=== PATIENT | male | born 1960 | race Caucasian/White ===

== ENCOUNTER 2017-12-05 21:09 | Inpatient (IN) | payer MEDICAID ==
[~2017-12-05] VITALS: Ht 167.6 cm; Wt 83.0 kg
[2017-12-05 21:19] VITALS: BP 138/100
--- NOTE | 2017-12-05 21:23 | NUR ---
PT SENT TO LOBBY, EVEN STEADY GAIT.
--- NOTE | 2017-12-05 22:14 | NUR ---
PT AMBULATED TO BED 11
--- NOTE | 2017-12-05 22:31 | NUR ---
PT PRESENTS TO ED WITH C/O RIGHT SIDED WEAKNESS AND DIZZINESS X 2 DAYS. PT IS ALERT AND ORIENTED TO PERSON, PLACE, TIME, AND EVENT. PT GAIT IS EVEN AND STEADY. PT HAND STRENGTH IS EQUAL AND STRONG. PT DENIES AND N/V. PT PUPILS ARE 3MM AND EQUAL AND REACTIVE TO LIGHT. NO NEURO DEFECITS NOTED. PT PLACED ON MONITORS AND IN BED WITH BED RAILS UP AND PENDING MD LAUREN.
[2017-12-06] VITALS (8 sets, daily range): BP systolic 137–156; BP diastolic 77–87
[2017-12-06] MEDS ORDERED: NACL 0.9% 1,000 ML IV ONE (00:10)
[2017-12-06] MEDS ORDERED: ASPIRIN 81 MG TAB.CHEW PO ONE (00:10)
--- NOTE | 2017-12-06 00:20 | NUR ---
DR PANTOJA AT BEDSIDE TO EXPLAIN CT RESULTS TO PATIENT. PIV STARTED, PT TOLERATED WELL. ANSWERING QUESTIONS APPROPRIATELY.
[2017-12-06 00:28] LABS: BASOPHILS % (AUTO) 0.5 % (0.0-2.0); EOSINOPHILS # (AUTO) 0.1 K/uL (0-0.4); EOSINOPHILS % (AUTO) 1.5 % (0.0-4.0); HEMATOCRIT 43.6 % (36-52); HEMOGLOBIN 14.4 g/dL (12.0-18.0); LYMPHOCYTES # (AUTO) 2.3 K/uL (2.0-11.5); LYMPHOCYTES % (AUTO) 26.9 % (20.5-51.1); MEAN CORPUSCULAR HEMOGLOBIN 28 pg (27-31); MEAN CORPUSCULAR HGB CONC 33 g/dL (33-37); MEAN CORPUSCULAR VOLUME 84.2 fL (80-94); MONOCYTES # (AUTO) 0.7 K/uL (0.8-1.0); MONOCYTES % (AUTO) 7.7 % (1.7-9.3); NEUTROPHILS # (AUTO) 5.4 K/uL (1.8-7.7); NEUTROPHILS % (AUTO) 63.4 % (42.2-75.2); PLATELET COUNT (AUTO) 309 K/uL (140-450); RED BLOOD CELL COUNT(AUTO) 5.18 MIL/uL (4.20-6.10); RED CELL DISTRIBUTION WIDTH 15.4 % (11.6-13.7); WHITE BLOOD COUNT (AUTO) 8.5 K/uL (4.8-10.8)
--- NOTE | 2017-12-06 00:33 | NUR ---
PT RESTING AT THIS TIME. NO COMPLAINTS OR QUESTIONS. WILL CONTINUE TO MONITOR.
[2017-12-06] MEDS ORDERED: AMLO5TAB PO (00:36)
[2017-12-06 00:39] LABS: ANION GAP 8.3 (8-16); POTASSIUM 3.3 mmol/L (3.5-5.1)
[2017-12-06 00:43] LABS: PROTHROMBIN TIME 9.5 secs (10.8-13.4)
[2017-12-06 00:44] LABS: ALBUMIN 3.6 g/dL (3.4-5.0); TOTAL BILIRUBIN 0.3 mg/dL (0.0-1.0)
[2017-12-06] MEDS ORDERED: ENOXAPARIN 100 MG/ML SYR SUBQ ONE (01:10)
[2017-12-06] MEDS ORDERED: HYDROcodone/APAP 5/325 MG 1 TAB TAB PO PRN (01:40)
[2017-12-06] MEDS ORDERED: DOCUSATE SODIUM 100 MG GELCAP PO PRN (01:40)
[2017-12-06] MEDS ORDERED: MORPHINE SULFATE 2 MG/ML SYR IVP PRN (01:40)
[2017-12-06] MEDS ORDERED: ONDANSETRON 4 MG/2 ML VIAL IM/IVP PRN (01:40)
[2017-12-06] MEDS ORDERED: ACETAMINOPHEN 325 MG TAB PO PRN (01:40)
[2017-12-06] MEDS ORDERED: ZOLPIDEM 5 MG TAB PO PRN (01:40)
[2017-12-06] MEDS ORDERED: LORazepam 2 MG/ML VIAL IM/IVP PRN (01:40)
[2017-12-06 02:09] LABS: APPEARANCE,URINE SL CLOUDY (CLEAR); BILIRUBIN,URINE NEGATIVE (NEGATIVE); BLOOD, URINE NEGATIVE (NEGATIVE); COLOR,URINE YELLOW (YELLOW); LEUKOCYTE ESTERASE ,URINE NEGATIVE (NEGATIVE); NITRITE, URINE NEGATIVE (NEGATIVE); UGLUCOSE NEGATIVE (NEGATIVE)
--- NOTE | 2017-12-06 02:10 | NUR ---
RECEIVED REPORT FROM DAY SHIFT RN, FOR CONTINUITY OF CARE. PT IS A/OX4 WITH CLEAR SPEECH, ON ROOM AIR. PT IS ABLE TO MAKE NEEDS KNOWN, ABLE TO FOLLOW COMMANDS. PT BREATHS EQUAL AND UNLABORED. PUPILS EQUAL AND REACTIVE TO LIGHT, STRENGTH EQUAL TO ALL EXTREMITIES. BOWEL SOUNDS PRESENT. PT SKIN IS INTACT. PT AMBULATES WITH STEADY GAIT, BUT IS A FALL RISK FOR RIGHT SIDED WEAKNESS. PT HAS A 18G IV TO RIGHT HAND AND A 18G IV TO LEFT AC, (LEFT IV) INFUSING NS AT 100ML/HR, BOTH ASYMPTOMATIC AND INTACT. DISCUSSED PLAN OF CARE WITH PT, PT VERBALIZED UNDERSTANDING. VITAL SIGNS WITHIN NORMAL LIMITS. PT STABLE, NO SIGNS OF DISTRESS NOTED AT THIS TIME. BED IN LOWEST POSITION, BED ALARM ON. CALL LIGHT WITHIN REACH, WILL CONTINUE TO MONITOR.
--- NOTE | 2017-12-06 02:10 | NUR ---
Patient will be admitted to care of DR WRIGHT. Admited to TELE. Will go to room 123-B. Belongings list completed. Report to YUSUF HORTON.
--- NOTE | 2017-12-06 02:10 | NUR ---
Pt transferred to Tele 123B viaBED .
[2017-12-06] MEDS ORDERED: amLODIPine 5 MG TAB PO ONE (02:15)
[2017-12-06] MEDS ORDERED: POTASSIUM CHLORIDE 10 MEQ TABER PO SCH (02:15)
[2017-12-06 02:19] LABS: BARBITURATE, URINE NEG. ng/ml (NEG <=200); BENZODIAZEPINE, URINE NEG. ng/mL (NEG <=200); CANNABINOID, URINE NEG. ng/mL (NEG <=50); COCAINE, URINE NEG. ng/mL (NEG <=300); OPIATE, URINE NEG. ng/mL (NEG <=2000); PHENCYCLIDINE SCREEN,URINE NEG. ng/mL (NEG <=25)
[2017-12-06 02:27] LABS: AMYLASE 30 U/L (25-115); HDL CHOLESTEROL 43 mg/dL (40-60); LDL (CALC) 104 mg/dL (60-100); LIPASE 185 U/L (73-393); MAGNESIUM 2.3 mg/dL (1.8-2.4); THYROID STIMULATING HORMONE 1.23 uIU/mL (0.34-3.74); TRIGLYCERIDES 117 mg/dL (30-150)
[2017-12-06] MEDS: ATORVASTATIN 80 MG TAB PO SCH ×2 (02:58→17:14)
[2017-12-06] MEDS ORDERED: amLODIPine 5 MG TAB PO SCH ×2 (03:00→10:05)
[2017-12-06] MEDS: DEXT 5% / NACL 0.45% 1,000 ML IV SCH ×2 (03:00→11:09)
[2017-12-06] MEDS ORDERED: ATORVASTATIN 80 MG TAB PO SCH (03:00)
--- NOTE | 2017-12-06 04:00 | NUR ---
ORTHOSTATIC VITAL SIGNS DONE. VITAL SIGNS WITHIN NORMAL LIMITS. PT STABLE, NO SIGNS OF DISTRESS NOTED AT THIS TIME. BED IN LOWEST POSITION, BED ALARM ON.
[2017-12-06 04:02] LABS: LACTATE DEHYDROGENASE 169 U/L (85-227)
--- NOTE | 2017-12-06 06:40 | NUR ---
PT STABLE, NO SIGNS OF DISTRESS NOTED AT THIS TIME. BED IN LOWEST POSITION, BED ALARM ON.
[2017-12-06 06:46] LABS: BASOPHILS # (AUTO) 0.1 K/uL (0.00-0.22); BASOPHILS % (AUTO) 0.9 % (0.0-2.0); EOSINOPHILS # (AUTO) 0.2 K/uL (0-0.4); EOSINOPHILS % (AUTO) 1.9 % (0.0-4.0); HEMATOCRIT 41.8 % (36-52); HEMOGLOBIN 13.7 g/dL (12.0-18.0); LYMPHOCYTES # (AUTO) 2.1 K/uL (2.0-11.5); LYMPHOCYTES % (AUTO) 24.6 % (20.5-51.1); MEAN CORPUSCULAR HEMOGLOBIN 28 pg (27-31); MEAN CORPUSCULAR HGB CONC 33 g/dL (33-37); MEAN CORPUSCULAR VOLUME 84.3 fL (80-94); MONOCYTES # (AUTO) 0.7 K/uL (0.8-1.0); NEUTROPHILS # (AUTO) 5.4 K/uL (1.8-7.7); NEUTROPHILS % (AUTO) 64.6 % (42.2-75.2); PLATELET COUNT (AUTO) 287 K/uL (140-450); RED BLOOD CELL COUNT(AUTO) 4.96 MIL/uL (4.20-6.10); RED CELL DISTRIBUTION WIDTH 15.3 % (11.6-13.7); WHITE BLOOD COUNT (AUTO) 8.4 K/uL (4.8-10.8)
[2017-12-06 07:01] LABS: ANION GAP 6.6 (8-16); CARBON DIOXIDE 29.6 mmol/L (21-32); POTASSIUM 3.2 mmol/L (3.5-5.1)
[2017-12-06 07:07] LABS: MAGNESIUM 2.2 mg/dL (1.8-2.4)
--- NOTE | 2017-12-06 07:22 | NUR ---
RECEIVED REPORT AT BEDSIDE FROM CLAIMS ACCOUNT SPECIALIST NURSE. SKIN INTACT. NO S/S OF RESPIRATORY DISTRESS, RESPIRATIONS EVEN AND UNLABORED. NO COMPLAINTS OF PAIN OR DISCOMFORT. LUNGS CTA. HOB AT 30 DEGREES. HEART RHYTHM IS REGULAR. IV SITE PATENT AND ASYMPTOMATIC, RUNNING IVF PER MD ORDERS. PT IS AMBULATORY. ON SEIZURE PRECAUTIONS. BED IN LOWEST POSITION, BED BREAKS ON, BOTH SIDE RAILS UP. BEDSIDE TABLE AND CALL LIGHT ARE WITHIN REACH. WILL CONTINUE TO MONITOR. Addendum: 12/06/17 at 1107 by Nena Wilson Meng, RN HX CVA WITH RIGHT SIDED WEAKNESS.
--- NOTE | 2017-12-06 07:27 | NUR ---
ENDORSED PT TO DAY SHIFT RN FOR CONTINUITY OF CARE. PT IN STABLE CONDITION.
--- NOTE | 2017-12-06 08:47 | NUR ---
NOTIFIED DR. CHAVIS THAT POTASSIUM IS LOW.
--- NOTE | 2017-12-06 08:57 | NUR ---
PATIENT HAS BEEN SCREENED AND CATEGORIZED MODERATE NUTRITION RISK. PATIENT WILL BE SEEN WITHIN 3-5 DAYS OF ADMISSION. 12/08/17 12/10/[address]
--- NOTE | 2017-12-06 09:52 | NUR ---
HELPED PT DIAL SISTER'S NUMBER. SISTER WILL BE HERE LATER TODAY TO GIVE PATIENT HIS GLASSES.
[2017-12-06] MEDS: POTASSIUM CHLORIDE 10 MEQ TABER PO SCH ×2 (12:26→21:27)
--- NOTE | 2017-12-06 12:28 | NUR ---
SCHEDULED K DUR ADMINISTERED TO PT. DENIES PAIN AND DISCOMFORT. STATES THAT HE "FEELS WELL."
--- NOTE | 2017-12-06 13:49 | NUR ---
HELPED PT TO THE BATHROOM. GAIT EVEN AND STEADY, WITHOUT ASSIST. ALL SAFETY PRECAUTIONS IN PLACE. PT URINATED IN BATHROOM AND WENT BACK TO BED. WILL CONTINUE TO MONITOR.
[2017-12-06] MEDS ORDERED: POTASSIUM CHLORIDE 40 MEQ, LIDOCAINE MPF 1% - 5 mL VIAL 25 MG in NACL 0.9% 250 ML IV ONE (14:45)
--- NOTE | 2017-12-06 16:10 | NUR ---
PATIENT RESTING IN BED, WATCHING TV. DENIES PAIN AND DISCOMFORT. WILL CONTINUE TO MONITOR.
[2017-12-06] MEDS ORDERED: INFLUENZA VIRUS VACCINE QUAD 0.5 ML SYR IMVAC SCH (17:00)
--- NOTE | 2017-12-06 17:00 | NUR ---
DOCTOR NOTIFIED THAT PATIENT WOULD LIKE TO RECEIVE THE FLU VACCINE. DR. DALY TO PUT IN ORDER.
--- NOTE | 2017-12-06 17:22 | NUR ---
FLU VACCINE ADMINISTERED. PATIENT TEACHING GIVEN. PT VERBALIZED COMPLETE UNDERSTANDING.
--- NOTE | 2017-12-06 19:30 | NUR ---
ENDORSED POC TO GRILL CHEF RN AT BEDSIDE. PT IN STABLE CONDITION.
--- NOTE | 2017-12-06 19:33 | NUR ---
RECEIVED PT FROM DARIELA RN PT AAOX4 RESTING ON BD ON TELEMETRY SR, HL ON LEFT AC AND RT HAND PATENT NOT DISTRESS NOTED DENIES ANY SIDE WEAKNESS INITIAL ASSESSMENT DONE
--- NOTE | 2017-12-06 22:00 | NUR ---
PT SLEEPING WELL NOT SIGNS OF DISTRESS NOTED ON TELEMTRY SR
[2017-12-06] MEDS ORDERED: cloNIDine 0.1 MG TAB PO PRN (22:20)
[2017-12-07] VITALS: BP 152/75
--- NOTE | 2017-12-07 01:00 | NUR ---
PT RESTING ON BEDNOT DISTRESS NOTED VOIDING WELL ON TELEMETRY SR DENIES ANY WEAKNESS
[2017-12-07 04:00] VITALS: BP 140/83
--- NOTE | 2017-12-07 05:00 | NUR ---
SPONGE BATH GIVEN LINEN CHANGED ON TELEMETRY SR DENIES ANY PAIN OR DISCOMFORT
[2017-12-07 06:50] LABS: BASOPHILS % (AUTO) 0.6 % (0.0-2.0); EOSINOPHILS # (AUTO) 0.2 K/uL (0-0.4); EOSINOPHILS % (AUTO) 2.6 % (0.0-4.0); HEMATOCRIT 43.6 % (36-52); HEMOGLOBIN 14.4 g/dL (12.0-18.0); LYMPHOCYTES # (AUTO) 2.1 K/uL (2.0-11.5); LYMPHOCYTES % (AUTO) 25.6 % (20.5-51.1); MEAN CORPUSCULAR HEMOGLOBIN 28 pg (27-31); MEAN CORPUSCULAR HGB CONC 33 g/dL (33-37); MEAN CORPUSCULAR VOLUME 83.9 fL (80-94); MONOCYTES # (AUTO) 0.6 K/uL (0.8-1.0); MONOCYTES % (AUTO) 7.3 % (1.7-9.3); NEUTROPHILS # (AUTO) 5.2 K/uL (1.8-7.7); NEUTROPHILS % (AUTO) 63.9 % (42.2-75.2); PLATELET COUNT (AUTO) 286 K/uL (140-450); RED CELL DISTRIBUTION WIDTH 14.9 % (11.6-13.7); WHITE BLOOD COUNT (AUTO) 8.1 K/uL (4.8-10.8)
[2017-12-07 06:55] LABS: CARBON DIOXIDE 26.8 mmol/L (21-32); CREATININE 0.9 mg/dL (0.7-1.3); POTASSIUM 3.8 mmol/L (3.5-5.1)
[2017-12-07 07:02] LABS: MAGNESIUM 2.1 mg/dL (1.8-2.4); PHOSPHORUS 3.3 mg/dL (2.5-4.9)
--- NOTE | 2017-12-07 07:10 | NUR ---
PT REMAIN STABLE WILL BE ENDORSED TODAY SHIFT NURSE FOR CONTINUITY OF CARE
--- NOTE | 2017-12-07 07:20 | NUR ---
RECEIVED REPORT FROM NUCLEAR WEAPONS SPECIALIST YUSUF EL AT BEDSIDE. PT IN STABLE CONDITION. DENIES DIZZINESS, PAIN, DISCOMFORT, AND RIGHT SIDED WEAKNESS. STRENGTH IN BILATERAL HANDS EQUAL. RIGHT LEG SLIGHTLY WEAK AGAINST RESISTANCE. GAIT EVEN AND STEADY, WITHOUT ASSIST. IV SITE PATENT AND ASYMPTOMATIC, ON SL. SKIN INTACT. TATTOOS OVER BODY. DISCUSSED PLAN OF CARE WITH PATIENT. PT VERBALIZED COMPLETE UNDERSTANDING. ALL SAFETY PRECAUTIONS IN PLACE, WILL CONTINUE TO MONITOR.
[2017-12-07 08:00] VITALS: BP 144/92
[2017-12-07] MEDS: amLODIPine 5 MG TAB PO SCH (08:10)
--- NOTE | 2017-12-07 09:50 | NUR ---
OBTAINED INFORMATION FROM PATIENT FOR MRI CHECKLIST.
--- NOTE | 2017-12-07 10:15 | NUR ---
REHANA GUZMAN INFORMED THAT PATIENT REPORTS BULLET FRAGMENTS IN HEAD AND LEFT ARM.
--- NOTE | 2017-12-07 10:21 | NUR ---
DR. CHAVIS IN ROOM TO SPEAK WITH PT. MRI HEAD WILL BE CANCELLED.
[2017-12-07 12:00] VITALS: BP_SYST 148; BP_SYST 149; BP_DIAS 86; BP_DIAS 90
--- NOTE | 2017-12-07 12:10 | NUR ---
PATIENT HAS SIGNED CONSENT FOR CONTRAST FOR CT HEAD. PT HAS ATE LUNCH ALREADY. WILL REMOVE ALL FOOD AND DRINK FROM BEDSIDE. Addendum: 12/07/17 at 1407 by Nena Wilson Meng, RN CONSENT FILED IN PT CHART.
--- NOTE | 2017-12-07 13:30 | NUR ---
RADIOLOGY AWARE THAT PT ATE LUNCH. THEY WILL TAKE PATIENT AROUND [address] HEAD WITH CONTRAST.
--- NOTE | 2017-12-07 15:57 | NUR ---
PT TAKEN BY [facility] VIA WHEELCHAIR FOR CT HEAD WITH CONTRAST. VITALS STABLE. LEFT AC 18G IV FLUSHING WELL.
[2017-12-07 16:00] VITALS: BP 148/90
--- NOTE | 2017-12-07 16:15 | NUR ---
PT BACK FROM CT. SPO2 98%, HR 85, BP 127/85. PT CONNECTED BACK TO TELE. WILL CONTINUE TO MONITOR.
--- NOTE | 2017-12-07 17:30 | NUR ---
DR. DALY NOTIFIED THAT PT HAS URGE TO SMOKE. DOCTOR TO PUT IN ORDER FOR NICOTINE PATCH.
[2017-12-07] MEDS: DEXT 5% / NACL 0.45% 1,000 ML IV SCH (17:40)
--- NOTE | 2017-12-07 17:42 | NUR ---
D5-1/2NS NOT ADMINISTERED PER PARAMETERS. PT IS NOT NPO. HAS BEEN EATING ALL MEALS. NO S/S OF HYPOGLYCEMIA.
[2017-12-07] MEDS: ATORVASTATIN 80 MG TAB PO SCH (17:43)
--- NOTE | 2017-12-07 19:24 | NUR ---
REPORT GIVEN TO LEGUILLON DEBEADER RN AT BEDSIDE FOR CONTINUITY OF CARE. PT IN STABLE CONDITION.
--- NOTE | 2017-12-07 19:25 | NUR ---
RECEIVED PATIENT AWAKE SITTING ON THE SIDE OF THE BED. PATIENT [id number], AMBULATORY. DISCUSSED PLAN OF CARE. FALL PRECAUTION APPLIED. CALL LIGHT WITHIN REACH.
[2017-12-07 20:00] VITALS: BP 154/86
--- NOTE | 2017-12-07 21:05 | NUR ---
SEE PATIENT ASLEEP ON BED IN COMFORTABLE POSITION . BED IN LOW LOCKED POSITION. CALL LIGHT WITHIN REACH. NO S/S OF DISTRESS NOTED. WILL CONTINUE TO MONITOR.
[2017-12-08] VITALS: BP 156/87
--- NOTE | 2017-12-08 00:05 | NUR ---
SEEN PATIENT ASLEEP BUT EASILY AROUSABLE. V/S TAKEN AND RECORDED. ALL NEEDS ATTENDED. NO S/S OF DISTRESS NOTED AT THIS TIME. WILL CONTINUE TO MONITOR.
--- NOTE | 2017-12-08 02:10 | NUR ---
SEEN PATIENT ASLEEP COMFORTABLE ON BED. CALL LIGHT WITHIN REACH. WILL CONTINUE TO MONITOR.
[2017-12-08 04:00] VITALS: BP 152/86
--- NOTE | 2017-12-08 04:05 | NUR ---
SEEN PATIENT ASLEEP ON BED. V/S TAKEN AND RECORDED. BED IN LOW POSITION.
--- NOTE | 2017-12-08 07:30 | NUR ---
GAVE REPORT TO AM SHIFT NURSE AT BEDSIDE FOR CONTINUITY OF CARE. PATIENT IN STABLE CONDITION.
--- NOTE | 2017-12-08 07:32 | NUR ---
RECEIVED REPORT FROM NURSE AT BEDSIDE. PT LYING ON HIS BED. PT AOX4, ABLE TO COMMUNICATE EASILY. PT HAS IV ACCESS ON LFT FA, 22 G, SALINE LOCK. NO IVF INFUSING. SKI IS INTACT. PT STATES TO GO HOME TODAY. INFORMED HIM THAT MD WILL SEE PT AND THEN IF STABLE , WILL PUT ORDER FOR DISCHARGE. UPDATED BOARD AND INTRODUCED SELF. DENIES ANY PAIN. NO SIGN OF DISTRESS NOTED. PLACED CALL LIGHT WITHIN PT REACH. INFORMED HIM TO USE CALL LIGHT FOR ANY HELP. VERBALISED UNDERSTANDING. WILL CONTINUE TO MONITOR PT.
[2017-12-08 07:49] VITALS: BP 161/96
--- NOTE | 2017-12-08 07:50 | NUR ---
CALLED AND ORDERED TO ADMINISTER METOPROL TO PT. STATES CAN ADMINISTER OTHER BP MEDS AT 0900 AM. ADMINISTERED MEDS TO PT. TOLERATED WELL. INFORMED HIM THAT WILL COME BACK OTHER MEDS AT 0900 AND THEN AFTER HIS BP GETS IN NORMAL RANGE WILL WORK ON HIS DC PAPER ORDERED BY . VERBALIZED UNDERSTANDING. WILL CONTINUE TO MONITOR PT.
[2017-12-08] MEDS ORDERED: LISINOPRIL 10 MG TAB PO SCH ×2 (09:00)
[2017-12-08] MEDS ORDERED: METOPROLOL SUCCINATE 50 MG TABER PO SCH (09:00)
[2017-12-08] MEDS ORDERED: ASPIRIN 325 MG TAB PO SCH (09:00)
[2017-12-08] MEDS ORDERED: NICOTINE TRANSD SYS 21 MG/24 HR PATCH TD SCH (09:00)
[2017-12-08] MEDS: amLODIPine 5 MG TAB PO SCH (09:16)
--- NOTE | 2017-12-08 09:25 | NUR ---
ADMINISTERED MEDS TO PT ORDERED TOLERATED WELL. INFORMED HIM WAITING FOR HIS DC ORDER. NEEDS BP IN NORMAL RANGE. VERBALIZED UNDERSTANDING. WILL CONTINUE TO MONITOR PT.
[2017-12-08] MEDS ORDERED: LISINOPRIL 20 MG TAB PO SCH (11:00)
[2017-12-08] MEDS ORDERED: LISI10TA11 PO (11:05)
[2017-12-08] MEDS ORDERED: AMLO5TAB4 PO (11:05)
[2017-12-08] MEDS ORDERED: METO50TE2 PO (11:05)
[2017-12-08] MEDS ORDERED: LIP80 PO (11:05)
[2017-12-08] MEDS ORDERED: ASPI325T49 PO (11:05)
[2017-12-08 11:40] VITALS: BP 129/76
--- NOTE | 2017-12-08 12:10 | NUR ---
PT DISCHARGED TO HOME. EXPLAINED DISCHARGE INSTRUCTION ORDERED BY . INFORMED HIM TO CALL THE [facility] BEFORE VISIT , VISIT TO BE DONE 12/10-12/14 IN BETWEEN [phone]. OFFICE ADDRESS AND PHON NUMBER PROVIDED WITH DC PAPER. PRESCRIPTION GIVEN TO PT. PT EDUCATED ON FOLLOWING CARDIAC DIET FOR PROLONGED BENEFIT, AND REGULAR EXERCISE. PT ALSO ADVISED TO REFRAIN FROM SMOKING AND ALCOHOL. VERBALIZED UNDERSTANDING. PT STABLE , ALERT AND COMMUNICATING WELL AT TIME OF DISCHARGE. WENT HOME WITH ALL HIS BELONGINGS, WALKED TO FRONT BY SELF, FAMILY MEMBER AT BEDSIDE.
[2017-12-09] MEDS ORDERED: LISINOPRIL 10 MG TAB PO SCH (09:00)
== END 2017-12-08 12:10 | disposition home or self-care (01) | DRG 45 ==
LOC: MED 21:09 → MTU 12-06 01:40
PROVIDERS: ADMIT General Practice; ATTEND General Practice
PROC: 3E0234Z Introduction of Serum, Toxoid and Vaccine into Muscle, Percutaneous Approach (ICD-10-PCS; principal; 2017-12-06)
DX: I63.9 Cerebral infarction, unspecified (principal); E83.39 Other disorders of phosphorus metabolism; E87.8 Other disorders of electrolyte and fluid balance, not elsewhere classified; E87.6 Hypokalemia; I16.0 Hypertensive urgency; I10 Essential (primary) hypertension; J98.11 Atelectasis; F17.210 Nicotine dependence, cigarettes, uncomplicated; E78.5 Hyperlipidemia, unspecified; G81.91 Hemiplegia, unspecified affecting right dominant side; Z79.899 Other long term (current) drug therapy; Z83.3 Family history of diabetes mellitus; Z82.49 Family history of ischemic heart disease and other diseases of the circulatory system; Z71.6 Tobacco abuse counseling; Z23 Encounter for immunization; I65.29 Occlusion and stenosis of unspecified carotid artery
CPT/HCPCS: 36415; 70450; 70460; 71045; 80048; 80053; 80305; 81003; 82140; 82150; 82550; 83036; 83615; 83690; 83735; 83880; 84100; 84134; 84436; 84443; 84484; 85025; 85610; 85730; 87081; 90658; 93005; 93880; 96360; 96361; 96372; 97161-GP; 99285; G0482; J1644; J1650; J7030; Q0092

== ENCOUNTER 2018-02-12 18:11 | Emergency (ER) | payer SELFPAY ==
[~2018-02-12] VITALS: Ht 167.6 cm; Wt 79.4 kg
[~2018-02-12 18:11] MED LIST: AMLO5TAB4 PO; ASPI325T49 PO; LIP80 PO; LISI10TA11 PO; METO50TE2 PO
[2018-02-12 18:19] VITALS: BP 148/78
--- NOTE | 2018-02-12 18:19 | NUR ---
Patient ambulated to bed 7. RN evaluating patient at bedside.
--- NOTE | 2018-02-12 18:44 | NUR ---
57/ M BIB SELF, C/O LEFT TESTICULAR+ PAIN, SWOLLEN AND TENDERNESS. DENIES PAIN WITH URINATION, NO DISCOLORATION ADDS HE WAS LIFTING HEAVY AT WORK 7 DAYS AGO, FELT PAIN AFTERWARDS. HX: HTN, RX: ASPIRIN, ATOROVASTATIN, METOPROLOL, AMLODIPINE
--- NOTE | 2018-02-12 18:54 | NUR ---
URINE CUP HANDED TO PATIENT FOR SAMPLE.
--- NOTE | 2018-02-12 19:06 | NUR ---
GAVE REPORT TO GLENROY GODLBERG.
--- NOTE | 2018-02-12 19:10 | NUR ---
ASSUMED CARE OF PT AT THIS TIME. PT AWAITS U/S RESULTS AND MD DISPOSITION. JENIFER. VSS. WILL CONTINUE TO MONITOR.
[2018-02-12 19:15] LABS: APPEARANCE,URINE CLOUDY (CLEAR); BILIRUBIN,URINE NEGATIVE (NEGATIVE); BLOOD, URINE 3+ (NEGATIVE); COLOR,URINE YELLOW (YELLOW); LEUKOCYTE ESTERASE ,URINE 2+ (NEGATIVE); NITRITE, URINE NEGATIVE (NEGATIVE); UGLUCOSE NEGATIVE (NEGATIVE)
[2018-02-12 19:26] LABS: RBC,URINE 3-10 (FEW) /HPF (0-5); WBC,URINE TOO MANY TO COUNT /HPF (0-5)
[2018-02-12] MEDS ORDERED: KETOROLAC 60 MG/2 ML VIAL IM ONE (20:25)
[2018-02-12 20:50] VITALS: BP 130/74
--- NOTE | 2018-02-12 20:50 | NUR ---
Patient discharged with v/s stable. Written and verbal after care instructions given and explained. Patient alert, oriented and verbalized understanding of instructions. Ambulatory with steady gait. All questions addressed prior to discharge. ID band removed. Patient advised to follow up with PMD. Rx of MOTRIN AND CIPRO given. Patient educated on indication of medication including possible reaction and side effects. Opportunity to ask questions provided and answered.
[2018-02-14 06:32] LABS: CHLAMYDIA TRACHOMATIS AMP DNA Negative (Negative)
== END 2018-02-12 20:50 | disposition home or self-care (01) ==
LOC: MED 18:11
DX: N45.1 Epididymitis (principal); F17.200 Nicotine dependence, unspecified, uncomplicated; I10 Essential (primary) hypertension; Z86.73 Personal history of transient ischemic attack (TIA), and cerebral infarction without residual deficits; Z79.899 Other long term (current) drug therapy; Z79.82 Long term (current) use of aspirin
CPT/HCPCS: 36415; 76870; 81001; 87086; 96372; 99284; J1885; Q0092; 87491